=== PATIENT | male | born 1975 | race Caucasian/White ===

== ENCOUNTER 2020-07-28 18:09 | Emergency (ER) | payer MEDICAID ==
[~2020-07-28] VITALS: Ht 180.3 cm; Wt 90.0 kg
[2020-07-28 18:35] VITALS: BP 125/72
--- NOTE | 2020-07-28 19:41 | NUR ---
late note. at bedside [place]. Pt requesting to go meet the . getting agitated and reuqest to go. was able to ambulate with Tom EMT without problem. Md notified and doesnt want more intervention. Will discharge pt. Pt calm and vss.
== END 2020-07-28 19:44 | disposition home or self-care (01) ==
LOC: ER 18:09
DX: T40.601A Poisoning by unspecified narcotics, accidental (unintentional), initial encounter (principal); Z88.5 Allergy status to narcotic agent; Y92.89 Other specified places as the place of occurrence of the external cause
CPT/HCPCS: 99283